=== PATIENT | female | born 1975 | race Caucasian/White ===

== ENCOUNTER 2017-01-03 03:47 | Emergency (ER) | payer OTHER ==
[2017-01-03] MEDS ORDERED: NS 0.9% 1000 ML* 1,000 ML IV ONE (03:55)
[2017-01-03 04:11] LABS: Hematocrit 34 % (35-47); Hemoglobin 11.6 g/dl (12.0-16.0); Mean Corpuscular HGB Conc 34 g/dl (31-36); Mean Corpuscular Hemoglobin 32 pg (27-31); Mean Corpuscular Volume 95 fL (80-97); Mean Platelet Volume 7 um3 (7.4-10.4); Red Blood Count 3.59 10^6/ul (4.0-5.4); Red Cell Distribution Width 13 % (10.5-15); White Blood Count 15.5 10^3/ul (3.5-10.8)
[2017-01-03 04:27] LABS: Albumin 3.3 g/dL (3.2-5.2); BUN/Creatinine Ratio 22.6 (8-20); Calcium 8.4 mg/dL (8.6-10.3); EGFR African American 163.5 (>60); EGFR Non-African American 127.1 (>60); Globulin 3.1 g/dL (2-4); Potassium 3.8 mmol/L (3.5-5.0); Total Bilirubin 0.2 mg/dL (0.2-1.0); Total Protein 6.4 g/dL (6.4-8.9)
[2017-01-03 05:20] LABS: Urine Bilirubin Negative (Negative); Urine Glucose 1+(50 mg/dL) (Negative); Urine Nitrite Negative (Negative)
[2017-01-03 05:21] LABS: Urine Bacteria Absent (Absent)
--- NOTE | 2017-01-03 06:19 | ED ---
Onofre Garcia Angela, scribed for Liz Beasley MD on 01/03/17 at 0354 . - HPI Summary HPI Summary: This pt is a 41 y/o female, was currently 14 weeks , presenting to [facility] via EMS after the pt delivered an approximately 14 week fetus 1 hour [employer]. She reports she began vaginal bleeding on Tuesday (12/31/16) so she went to her ObGyn (Dr. Juany Zelaya at [facility]) and was told she had placenta previa. Pt states her bleeding stopped 2 days ago, on Tuesday but returned last night. Pt notes that at 2330 last night she had severe abd cramping and went to the toilet. She states she took a bath and expelled products of conception at around 0245. LMP: September 30. Per EMS, pt expelled the placenta en route to the ED. - History of Current Complaint Stated Complaint: MISCARRIAGE Hx Obtained From: Patient Chief Complaint: Pain Onset/Duration: Started Hours Ago Timing: Lasting Hours Character: Cramping Associated Signs and Symptoms: Positive: Vaginal Bleeding or Discharge - Allergies/Home Medications Allergies/Adverse Reactions: Allergies Allergy/AdvReac Type Severity Reaction Status Date / Time No Known Allergies Allergy Verified 01/03/17 04:22 PMH/Surg Hx/FS Hx/Imm Hx Endocrine/Hematology History: Denies: Hx Diabetes Cardiovascular History: Denies: Hx Hypertension - Family History Known Family History: Negative: Diabetes - Social History Alcohol Use: None Hx Substance Use: No Substance Use Type: Reports: None Hx Tobacco Use: No Smoking Status (MU): Never Smoked Tobacco Review of Systems Negative: Fever, Chills Eyes: Negative Positive: Abdominal Pain - cramping Positive: other - passed fetus in placenta All Other Systems Reviewed And Are Negative: Yes Physical Exam - Physical Exam Triage Information Reviewed: Yes Vital Signs Reviewed: Yes Appearance: Positive: No Pain Distress, Ill-Appearing Skin: Positive: Warm, Skin Color Reflects Adequate Perfusion, Dry Eyes: Positive: EOMI, SOLOMON ENT: Positive: Pharynx normal, TMs normal Neck: Positive: Supple, Nontender Respiratory/Lung Sounds: Positive: Clear to Auscultation, Breath Sounds Present Cardiovascular: Positive: RRR. Negative: Murmur, Rub, Other - gallop Abdomen Description: Positive: Nontender, Soft. Negative: Distended, Guarding, Other: - rebound Bowel Sounds: Positive: Present Musculoskeletal: Positive: Strength/ROM Intact. Negative: Edema Left, Edema Right Neurological: Positive: Sensory/Motor Intact, Alert, Oriented to Person Place, Time, CN Intact II-III Psychiatric: Positive: Affect/Mood Appropriate Diagnostics - Vital Signs Vital Signs Temp Pulse Resp BP Pulse Ox 01/03/17 05:03 80 16 121/74 99 01/03/17 04:04 99.2 F 72 20 142/94 99 - Laboratory Lab Results: Lab Results 01/03/17 01/03/17 01/03/17 Range/Units 04:00 04:00 04:00 WBC 15.5 H (3.5-10.8) 10^3/ul RBC 3.59 L (4.0-5.4) 10^6/ul Hgb 11.6 L (12.0-16.0) g/dl Hct 34 L (35-47) % MCV 95 (80-97) fL MCH 32 H (27-31) pg MCHC 34 (31-36) g/dl RDW 13 (10.5-15) % Plt Count 276 (150-450) 10^3/ul MPV 7 L (7.4-10.4) um3 Neut % (Auto) 83.6 H (38-83) % Lymph % (Auto) 9.3 L (25-47) % [place] % (Auto) 6.1 (1-9) % Eos % (Auto) 0.7 (0-6) % Baso % (Auto) 0.3 (0-2) % Absolute Neuts (auto) 12.9 H (1.5-7.7) 10^3/ul Absolute Lymphs (auto) 1.4 (1.0-4.8) 10^3/ul Absolute Monos (auto) 0.9 H (0-0.8) 10^3/ul Absolute Eos (auto) 0.1 (0-0.6) 10^3/ul Absolute Basos (auto) 0.1 (0-0.2) 10^3/ul Absolute Nucleated RBC 0 10^3/ul Nucleated RBC % 0 Sodium 132 L (133-145) mmol/L Potassium 3.8 (3.5-5.0) mmol/L Chloride 105 (101-111) mmol/L Carbon Dioxide 22 (22-32) mmol/L Anion Gap 5 (2-11) mmol/L BUN 12 (6-24) mg/dL Creatinine 0.53 (0.51-0.95) mg/dL Est GFR ( Amer) 163.5 (>60) Est GFR (Non-Af Amer) 127.1 (>60) BUN/Creatinine Ratio 22.6 H (8-20) Glucose 123 H (70-100) mg/dL Calcium 8.4 L (8.6-10.3) mg/dL Total Bilirubin 0.20 (0.2-1.0) mg/dL AST 10 L (13-39) U/L ALT 10 (7-52) U/L Alkaline Phosphatase 53 (34-104) U/L Total Protein 6.4 (6.4-8.9) g/dL Albumin 3.3 (3.2-5.2) g/dL Globulin 3.1 (2-4) g/dL Albumin/Globulin Ratio 1.1 (1-3) Urine Color Urine Appearance Urine pH (5-9) Ur Specific [place] (1.010-1.030) Urine Protein (Negative) Urine Ketones (Negative) Urine Blood (Negative) Urine Nitrate (Negative) Urine Bilirubin (Negative) Urine Urobilinogen (Negative) Ur Leukocyte Esterase (Negative) Urine WBC (Auto) (Absent) Urine RBC (Auto) (Absent) Ur Squamous Epith Cells (Absent) Urine Bacteria (Absent) Urine Glucose (Negative) Blood Type A Negative 01/03/17 Range/Units 05:00 WBC (3.5-10.8) 10^3/ul RBC (4.0-5.4) 10^6/ul Hgb (12.0-16.0) g/dl Hct (35-47) % MCV (80-97) fL MCH (27-31) pg MCHC (31-36) g/dl RDW (10.5-15) % Plt Count (150-450) 10^3/ul MPV (7.4-10.4) um3 Neut % (Auto) (38-83) % Lymph % (Auto) (25-47) % [place] % (Auto) (1-9) % Eos % (Auto) (0-6) % Baso % (Auto) (0-2) % Absolute Neuts (auto) (1.5-7.7) 10^3/ul Absolute Lymphs (auto) (1.0-4.8) 10^3/ul Absolute Monos (auto) (0-0.8) 10^3/ul Absolute Eos (auto) (0-0.6) 10^3/ul Absolute Basos (auto) (0-0.2) 10^3/ul Absolute Nucleated RBC 10^3/ul Nucleated RBC % Sodium (133-145) mmol/L Potassium (3.5-5.0) mmol/L Chloride (101-111) mmol/L Carbon Dioxide (22-32) mmol/L Anion Gap (2-11) mmol/L BUN (6-24) mg/dL Creatinine (0.51-0.95) mg/dL Est GFR ( Amer) (>60) Est GFR (Non-Af Amer) (>60) BUN/Creatinine Ratio (8-20) Glucose (70-100) mg/dL Calcium (8.6-10.3) mg/dL Total Bilirubin (0.2-1.0) mg/dL AST (13-39) U/L ALT (7-52) U/L Alkaline Phosphatase (34-104) U/L Total Protein (6.4-8.9) g/dL Albumin (3.2-5.2) g/dL Globulin (2-4) g/dL Albumin/Globulin Ratio (1-3) Urine Color Red A Urine Appearance Turbid Urine pH 6.0 (5-9) Ur Specific [place] 1.020 (1.010-1.030) Urine Protein 3+(>=500 mg/dl) H (Negative) Urine Ketones Trace H (Negative) Urine Blood 3+ H (Negative) Urine Nitrate Negative (Negative) Urine Bilirubin Negative (Negative) Urine Urobilinogen Negative (Negative) Ur Leukocyte Esterase Negative (Negative) Urine WBC (Auto) Absent (Absent) Urine RBC (Auto) 3+(>10/hpf) H (Absent) Ur Squamous Epith Cells Present H (Absent) Urine Bacteria Absent (Absent) Urine Glucose 1+(50 mg/dl) H (Negative) Blood Type Result Diagrams: 01/03/17 04:00 01/03/17 04:00 Lab Statement: Any lab studies that have been ordered have been reviewed, and results considered in the medical decision making process. Course/Dx - Course Course Of Treatment: 41 yo s/p delivery of a non viable 14 week fetus. she is RH negative, Case was discussed with Dr. Nguyen she is awaiting the results of a pelvic ultrasound to be sure there are no retained parts, case will be signed out to the am attending for disposition - Diagnoses Provider Diagnoses: demise, less than 22 weeks Discharge - Discharge Plan Condition: Stable Disposition: OTHER Discharge Disposition Comment: to be determined The documentation as recorded by the Onofre stoner Angela accurately reflects the service I personally performed and the decisions made by me, Liz Beasley MD.
[2017-01-03] MEDS ORDERED: RHO D Immune Globulin (HUMAN)* 300 MCG = 1,500 I.U. INJ IM ONE (07:47)
[2017-01-03 08:04] VITALS: BP 126/71
--- NOTE | 2017-01-03 08:06 | PN ---
Progress Note - Progress Note Date of Service: 01/03/17 Note: Called to see Patient 41 yo s/p spontaneous at 14 weeks . Passed fetus at home and placenta on route. Patient was seen in ED elsewhere 2 days ago with bleeding and given Rhogam. Pt initially with some heavy bleeding but only scant since then . Pad on for last 2 hours inspected with streaks only . uterus nontender to palpation. Ultrasound reviewed with a normal appearance immediately follow ing SAB. heterogenous endometrium . . cbc reviewed . Assess . Spontaneous AB. probably completed. Plan. Discussed with patient most likely ok but needs to monitor bleeding and fever . Not to be left unattended at home .Family reassures me she elva not be alone . Option of D&C discussed to assure no retained products. Pt declines at this moment. Pt plans to follow with her OBGYN. Ryan Benavides md
--- NOTE | 2017-01-03 08:22 | RAD ---
HISTORY: Status post spontaneous COMPARISONS: None TECHNIQUE: Multiple transverse and longitudinal ultrasound images were obtained of the pelvis using grayscale and color Doppler imaging using the transabdominal transducer, submitted for review at 8:17 AM on January 03, 2017. FINDINGS: UTERUS: The uterus measures 15.2 x 6.8 x 9.6 cm. The uterus is normal in shape, size, contour, and echotexture. ENDOMETRIUM: The endometrium is thickened measuring 2.8 cm in size.. There is vascular tissues noted along the lower uterine segment and endocervical canal. There is an arcuate versus septate configuration to the endometrial cavity. CUL-DE-SAC: There is no free fluid within the cul-de-sac. RIGHT OVARY: The right ovary measures 2.4 x 1.9 x 2.6 cm. LEFT OVARY: The left ovary measures 4 x 2.3 x 2.8 cm. BLADDER: The visualized bladder is unremarkable. OTHER: None IMPRESSION: 1. THICKENED, WITH VASCULARIZED TISSUE WITHIN THE LOWER UTERINE SEGMENT EXTENDING INTO THE ENDOCERVICAL CANAL, CONSISTENT WITH RETAINED PRODUCTS OF CONCEPTION. 2. ARCUATE VERSUS SEPTATE UTERUS.
--- NOTE | 2017-01-03 09:16 | ED ---
Ivett Garcia Alfonso, scribed for Alex De La Cruz MD on 01/03/17 at 0717 . Progress - Progress Note Progress Note: This patient was signed out from Dr. Beasley, pending disposition, awaiting US pelvic. The patients condition is stable and will be discharged to home with Dx of vaginal bleeding. Dr. Beasley consulted Dr. Nguyen (OBGYN) who reports they will have Dr. Uribe see the patient in the ED. Dr. De La Cruz consulted Dr. Uribe (OBGYN) at 0746 who states that the patient is stable for discharge, states she has already received Rhogam 2 days ago, thus does not recommend any other doses, and recommends outpatient follow up. US Pelvic reveals, per radiologist, The endometrial complex measures 2.8 cm and is heterogeneous in nature possibly with some vascularity. There is also some heterogeneity to the material in the endocervical canal. 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 Therefore, the possibility of retained products of conception needs to be considered strongly. Normal right ovary. Normal left ovary. ED physician has reviewed this radiology report and agrees. She was recommended to return immediately to the ED if she were to develop increased vaginal bleeding, palpations, SOB, or dizziness. The patient is hemodynamically stable, alert and oriented x3. - Results/Orders Results/Orders: US Pelvic reveals, per radiologist, The endometrial complex measures 2.8 cm and is heterogeneous in nature possibly with some vascularity. There is also some heterogeneity to the material in the endocervical canal. 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 Therefore, the possibility of retained products of conception needs to be considered strongly. Normal right ovary. Normal left ovary. ED physician has reviewed this radiology report and agrees. Course/Dx - Diagnoses Provider Diagnoses: Vaginal bleeding The documentation as recorded by the Ivett stoner Alfonso accurately reflects the service I personally performed and the decisions made by Jono knapp Walter, MD.
== END 2017-01-03 08:03 | disposition home or self-care (01) ==
LOC: ED 03:47
DX: O46.91 Antepartum hemorrhage, unspecified, first trimester (principal); O03.80 Unspecified complication following complete or unspecified spontaneous abortion; R10.9 Unspecified abdominal pain
CPT/HCPCS: 36415; 76856; 80053; 81003; 81015; 85025; 86900; 86901; 88307; 99282; J2790